=== PATIENT | male | born 1970 | race Caucasian/White ===

== ENCOUNTER 2020-10-23 13:55 | Emergency (ER) | payer BC ==
[~2020-10-23] VITALS: Ht 182.9 cm; Wt 104.3 kg
--- NOTE | 2020-10-23 14:48 | NUR ---
Patient discharged to home in stable condition. Written and verbal after care instructions given. Patient verbalizes understanding of instructions. Stressed follow up or return to ER for worsening s/s.
== END 2020-10-23 14:48 | disposition home or self-care (01) ==
LOC: ER 13:55
DX: M25.511 Pain in right shoulder (principal); Z91.81 History of falling
CPT/HCPCS: 73030; A4663